=== PATIENT | female | born 2000 | race Hispanic/Latino ===

== ENCOUNTER 2023-04-15 17:23 | Emergency (ER) | payer MEDICAID, SELFPAY ==
[2023-04-15 18:06] LABS: Bilirubin Moderate (Negative); Blood, Urine Negative (Negative); Clarity Clear (Clear); Glucose, Urine (Dipstick) Negative (Negative); Ketone, Urine Negative (Negative); Leukocyte Negative (Negative); Nitrite Negative (Negative); Protein, Urine (Dipstick) 30 mg/dL (Neg-Trace); pH, Urine 5.5 (5.0-9.0)
[2023-04-15] MEDS ORDERED: Pantoprazole 40 MG VIAL ONE (18:06)
[2023-04-15] MEDS ORDERED: Sodium Chloride 0.9% 1,000 ML ONE (18:06)
[2023-04-15] MEDS ORDERED: Ondansetron PF 4 MG/2 ML Vial ONE (18:06)
[2023-04-15 18:20] LABS: Bacteria/HPF Rare-Few HPF (None Seen); RBC/HPF 0-3 HPF (0-3); Specific Gravity, Urine 1.035 (1.002-1.036); Squamous Epithelial 0-3 HPF (0-3); WBC/HPF 0-3 HPF (0-3)
[2023-04-15 18:21] LABS: Pregnancy Test - Urine (BHCG) Negative (Negative); Pregu Control Background? CLEAR/WHITE (CLR/WHITE); Pregu Control Bar Appear? YES (CONTROL BAR); Specific Gravity 1.035 (1.002-1.036)
[2023-04-15 18:22] LABS: Urine Culture Reflex No No
[2023-04-15 18:29] LABS: #Basophils 0.1 thou/uL (0.0-0.2); #Eosinphils 0.2 thou/uL (0.0-0.7); #Lymphocytes 2.1 thou/uL (1.20-3.40); #Monocytes 0.6 thou/uL (0.11-0.59); #Neutrophils 5.2 thou/uL (1.40-6.50); %Basophils 0.8 % (0.0-1.0); %Eosinophils 1.9 % (0.0-10.0); %Monocytes 7.6 % (0.0-10.0); %Neutrophils 63.7 % (42.0-75.0); Mean Corpuscular HGB CONC 32.9 g/dL (32.0-36.0); Mean Corpuscular Hemoglobin 28.8 pg (27.0-31.0); Mean Corpuscular Volume 87.7 fl (78.0-98.0); Mean Platelet Volume 10.7 fL (7.4-10.4); Platelet Count 197 10x3/uL (130-400); RBC Distribution Width 11.8 % (11.5-14.5); Red Blood Cell (RBC) Count 4.86 mill/uL (4.20-5.40); White Blood Cell (WBC) Count 8.1 10x3/uL (4.8-10.8)
[2023-04-15 18:54] LABS: ALT (SGPT) 469 U/L (8-55); AST (SGOT) 309 U/L (5-34); Alkaline Phosphatase 110 U/L (40-110); Anion Gap 14 mmol/L (10-20); BUN (Urea Nitrogen) 6 mg/dL (7.0-18.7); Bilirubin, Total 1.3 mg/dL (0.2-1.2); Calc. Creatinine Clearance 0 mL/min (70-130); Calcium 8.7 mg/dL (7.8-10.44); Carbon Dioxide 22 mmol/L (22-29); Chloride 105 mmol/L (98-107); Estimated GFR 125; Globulin 3.3 g/dL (2.4-3.5); Glucose 100 mg/dL (70-105); Lipase 19 U/L (8-78); Potassium 3.1 mmol/L (3.5-5.1); Protein, Total 7.3 g/dL (6.0-8.3); Sodium 138 mmol/L (136-145)
[2023-04-15] MEDS ORDERED: Lidocaine Viscous Sol 2% 15 ml UD Cup ONE (19:01)
[2023-04-15] MEDS ORDERED: Mag-Al Plus 1200 MG/1200 MG/120 MG/30 ML UDCUP ONE (19:01)
== END 2023-04-15 20:04 | disposition short-term general hospital (02) ==
LOC: NAV ERS 17:23
DX: K83.1 Obstruction of bile duct (principal); R74.01 Elevation of levels of liver transaminase levels; F17.290 Nicotine dependence, other tobacco product, uncomplicated
CPT/HCPCS: 80053; 81001; 81025; 83690; 85025; 96374; 96375; C9113; J2405; J7050